=== PATIENT | female | born 1960 | race Caucasian/White ===

== ENCOUNTER 2019-06-02 13:50 | Outpatient (CLI) | payer MEDICAID ==
[~2019-06-02] VITALS: Ht 165.1 cm; Wt 106.1 kg
[~2019-06-02 13:50] MED LIST: TRAM50TA2 PO
[2019-06-02] MEDS ORDERED: ALIR75PE INJ (14:44)
[2019-06-02] MEDS ORDERED: PANT40TA4 PO (14:44)
[2019-06-02] MEDS ORDERED: EPIN0.3A3 (14:44)
[2019-06-02] MEDS ORDERED: ALBU18HF2 INH (14:44)
[2019-06-02] MEDS ORDERED: ISOS30TA6 PO (14:44)
[2019-06-02] MEDS ORDERED: NITR0.4T48 PO (14:44)
[2019-06-02 15:10] LABS: BASOPHILS # (AUTO) 0.1 X10'3 (0-0.2); BASOPHILS % (AUTO) 0.8 % (0-1); EOSINOPHILS # (AUTO) 0.2 X10'3 (0-0.9); EOSINOPHILS % (AUTO) 2.6 % (0-6); LYMPHOCYTES # (AUTO) 2.2 X10'3 (1.1-4.8); LYMPHOCYTES % (AUTO) 34.7 % (21-51); MEAN CORPUSCULAR HEMOGLOBIN 32.2 PG (27.0-31.0); MEAN CORPUSCULAR HGB CONC 34.2 g/dL (33.0-36.5); MEAN CORPUSCULAR VOLUME 94.1 FL (78-98); MEAN PLATELET VOLUME 9.4 FL (7.4-10.4); MONOCYTES # (AUTO) 0.5 X10'3 (0-0.9); MONOCYTES % (AUTO) 7.5 % (2-12); NEUTROPHILS # (AUTO) 3.4 X10'3 (1.8-7.7); NEUTROPHILS % (AUTO) 54.4 % (42-75); PRE OP HEMATOCRIT 44.6 % (35.0-45.0); PRE OP HEMOGLOBIN 15.3 g/dL (12.0-16.0); PRE OP PLATELET COUNT 174 X10'3 (140-440); RED BLOOD COUNT 4.74 X10'6 (4.20-5.60); RED CELL DISTRIBUTION WIDTH 13.3 % (11.5-14.5)
[2019-06-02 15:25] LABS: ALBUMIN 3.9 G/DL (3.4-5.0); ALBUMIN/GLOBULIN RATIO 1.2 (1.1-1.5); ALKALINE PHOSPHATASE 101 IU/L (46-116); BLOOD UREA NITROGEN 6 MG/DL (7-18); BUN/CREATININE RATIO 8.7 (6.6-38.0); CHLORIDE 107 MMOL/L (99-107); CREATININE 0.69 MG/DL (0.40-0.90); PRE OP ANION GAP 8 (8-16); PRE OP AST 66 U/L (10-37); PRE OP BILIRUB, TOTAL 0.3 MG/DL (0.0-1.0); PRE OP GLUCOSE 113 MG/DL (70-104); PRE OP POTASSIUM 3.8 MMOL/L (3.4-5.1); PRE OP SODIUM 142 MMOL/L (135-145); TOTAL CARBON DIOXIDE 26.6 MMOL/L (24-32); TOTAL PROTEIN 7.1 G/DL (6.4-8.2); eGFR 87 ML/MIN
[2019-06-02 15:30] LABS: PRE OP ALT 120 U/L (30-65)
[2019-06-06] MEDS ORDERED: famotidine 20mg tablet PO ONE (05:30)
[2019-06-06] MEDS ORDERED: ringers solution, lacted 1,000 ML IV SCH (05:30)
[2019-06-06] MEDS ORDERED: cefazolin/dext.iso 2gm/100 ML IV ONE (05:30)
[2019-06-06] MEDS ORDERED: albuterol 2.5 MG/3 ML nebule NEB ONE (05:30)
== END 2019-06-02 23:59 | disposition home or self-care (01) ==
LOC: PRE-OP 13:50 → EDSTATUS 06-08 19:45
PROVIDERS: ATTEND Orthopaedic Surgery
DX: Z01.818 Encounter for other preprocedural examination (principal); M19.011 Primary osteoarthritis, right shoulder; M75.41 Impingement syndrome of right shoulder; F17.200 Nicotine dependence, unspecified, uncomplicated
CPT/HCPCS: 36415; 71046; 80053; 85025; J7120

== ENCOUNTER 2019-07-22 05:21 | Day surgery (SDC) | payer MEDICAID ==
[2019-07-13 14:41] LABS: BASOPHILS # (AUTO) 0.1 X10'3 (0-0.2); BASOPHILS % (AUTO) 1.2 % (0-1); EOSINOPHILS # (AUTO) 0.2 X10'3 (0-0.9); EOSINOPHILS % (AUTO) 3.1 % (0-6); LYMPHOCYTES # (AUTO) 1.7 X10'3 (1.1-4.8); LYMPHOCYTES % (AUTO) 28.4 % (21-51); MEAN CORPUSCULAR HEMOGLOBIN 32.8 PG (27.0-31.0); MEAN CORPUSCULAR HGB CONC 34.4 g/dL (33.0-36.5); MEAN CORPUSCULAR VOLUME 95.2 FL (78-98); MEAN PLATELET VOLUME 10.1 FL (7.4-10.4); MONOCYTES # (AUTO) 0.3 X10'3 (0-0.9); MONOCYTES % (AUTO) 5.2 % (2-12); NEUTROPHILS # (AUTO) 3.7 X10'3 (1.8-7.7); NEUTROPHILS % (AUTO) 62.1 % (42-75); PRE OP HEMATOCRIT 44.4 % (35.0-45.0); PRE OP HEMOGLOBIN 15.3 g/dL (12.0-16.0); PRE OP PLATELET COUNT 169 X10'3 (140-440); RED BLOOD COUNT 4.67 X10'6 (4.20-5.60); RED CELL DISTRIBUTION WIDTH 13.5 % (11.5-14.5)
[2019-07-13 14:53] LABS: PRE OP PROTIME 10.1 SECONDS (9.0-12.0)
[2019-07-13 14:54] LABS: ALBUMIN 3.8 G/DL (3.4-5.0); ALBUMIN/GLOBULIN RATIO 1.2 (1.1-1.5); ALKALINE PHOSPHATASE 108 IU/L (46-116); BLOOD UREA NITROGEN 14 MG/DL (7-18); BUN/CREATININE RATIO 17.9 (6.6-38.0); CALCIUM 8.9 MG/DL (8.5-10.1); CHLORIDE 106 MMOL/L (99-107); CREATININE 0.78 MG/DL (0.40-0.90); PRE OP ANION GAP 10 (8-16); PRE OP AST 62 U/L (10-37); PRE OP BILIRUB, TOTAL 0.4 MG/DL (0.0-1.0); PRE OP GLUCOSE 150 MG/DL (70-104); PRE OP POTASSIUM 3.8 MMOL/L (3.4-5.1); PRE OP SODIUM 145 MMOL/L (135-145); TOTAL CARBON DIOXIDE 29.2 MMOL/L (24-32); TOTAL PROTEIN 7.1 G/DL (6.4-8.2); eGFR 75 ML/MIN
[2019-07-13 15:02] LABS: PRE OP ALT 137 U/L (30-65)
[~2019-07-22] VITALS: Ht 165.1 cm; Wt 105.0 kg
[2019-07-22] VITALS (8 sets, daily range): BP systolic 105–123; BP diastolic 55–79
[~2019-07-22 05:21] MED LIST changes: +ALBU18HF2 INH; +ALIR75PE INJ; +EPIN0.3A3; +ISOS30TA6 PO; +NITR0.4T48 PO; +PANT40TA4 PO; -TRAM50TA2 PO; +ringers solution, lacted 1,000 ML IV SCH
[2019-07-22] MEDS ORDERED: cefazolin/dext.iso 2gm/50ml 50 ML IV ONE (05:30)
[2019-07-22] MEDS ORDERED: famotidine 20mg tablet PO ONE (05:30)
[2019-07-22] MEDS ORDERED: LIDOcaine 1% (10mg/ml) 2ml vial ONE (06:02)
[2019-07-22] MEDS ORDERED: BUPIVACAINE liposomal/PF 13.3 MG/ML vial IM ONE (07:16)
[2019-07-22] MEDS ORDERED: BUPIVAcaine 0.5% inj/PF 30 ML ONE (07:16)
[2019-07-22] MEDS ORDERED: midazolam 2 mg/2 ml injection ONE (07:19)
[2019-07-22] MEDS ORDERED: fentaNYL/PF 50MCG/1 ML 2ML syringe ONE ×2 (07:19→09:36)
[2019-07-22] MEDS ORDERED: LIDOcaine 2% (20mg/ml) 5ml vial ONE (07:21)
[2019-07-22] MEDS ORDERED: propofol inj 20 ML IV ONE (07:21)
[2019-07-22] MEDS ORDERED: ePHEDrine 50MG/ML INJ. ONE (07:22)
[2019-07-22] MEDS ORDERED: sevoflurane 250ml liquid IH ONE (07:22)
--- NOTE | 2019-07-22 07:30 | NUR ---
3 ATTEMPTS AT IV WERE UNSUCCESSFUL. DR FLORES NOTIFIED
[2019-07-22] MEDS ORDERED: dexamethasone sod phosphate 4mg/ml inj. ONE (07:57)
[2019-07-22] MEDS ORDERED: ondansetron/PF 4mg/2ml inj ONE (07:57)
[2019-07-22] MEDS ORDERED: ringers solution, lacted 1,000 ML IV SCH (08:21)
[2019-07-22] MEDS ORDERED: hydrALAZINE 20mg/ml inj. IV PRN (08:25)
[2019-07-22] MEDS ORDERED: labetalol 20mg/4ml (5mg/ml) syringe IV PRN (08:25)
[2019-07-22] MEDS ORDERED: fentaNYL/PF 50MCG/1 ML 2ML syringe IV PRN ×2 (08:25)
[2019-07-22] MEDS ORDERED: morphine 4 MG/ML inj SYRINge IV PRN ×2 (08:25)
[2019-07-22] MEDS ORDERED: ondansetron/PF 4mg/2ml inj IV PRN (08:25)
[2019-07-22] MEDS ORDERED: labetalol 20mg/4ml (5mg/ml) syringe IV ONE (09:37)
--- NOTE | 2019-07-22 10:10 | NUR ---
Received from OR via [facility] , accompanied by Anesthesiologist BEAU and report given by Anesthesiolgist. PATIENT WITH 20G PIV IN LEFT HAND RUNNING LR AT 100. 10L MASK ON WITH 95% SATURATIONS. PATIENT WITH ABDUCTOR SLING TO RIGHT UE THAT IS CDI. DRESSING IS CDI. Addendum: 07/22/19 at 1022 by Bryan Dye RN, RN Amended: Links added.
[2019-07-22] MEDS ORDERED: HYDROcodone/acetaminophen 10/325mg tab PO PRN (10:40)
--- NOTE | 2019-07-22 11:10 | NUR ---
ALL DC CRITERIA HAS BEEN MET. IV TAKEN OUT WITHOUT COMPLICATIONS. ALL INSTRUCTIONS COVERED AND ALL QUESTIONS ANSWERED. DRESSINGS CDI. OUT VIA WHEELCHAIR TO PERSONAL VEHICLE WHERE PATIENT WAS SECURED IN AND DRIVEN HOME BY FAMILY. DONNED BRACE SUPPLIED BY PATIENT- SPOUSE ASSISTED IN SAMY. IVA. NO DRAINAGE PRESENT. POWDER PACK PRESENT. Addendum: 07/22/19 at 1152 by Bryan Dye RN, RN Amended: Links added.
== END 2019-07-22 11:10 | disposition home or self-care (01) ==
LOC: PAS 05:21
PROVIDERS: ATTEND Orthopaedic Surgery
DX: S46.011A Strain of muscle(s) and tendon(s) of the rotator cuff of right shoulder, initial encounter (principal); M75.21 Bicipital tendinitis, right shoulder; M19.011 Primary osteoarthritis, right shoulder; M25.711 Osteophyte, right shoulder; G89.18 Other acute postprocedural pain; I10 Essential (primary) hypertension; J44.9 Chronic obstructive pulmonary disease, unspecified; I25.2 Old myocardial infarction; G47.30 Sleep apnea, unspecified; E66.9 Obesity, unspecified; Z68.38 Body mass index [BMI] 38.0-38.9, adult; X58.XXXA Exposure to other specified factors, initial encounter; Y93.89 Activity, other specified; Y92.89 Other specified places as the place of occurrence of the external cause; Y99.8 Other external cause status; Z91.09 Other allergy status, other than to drugs and biological substances; Z88.5 Allergy status to narcotic agent; Z88.2 Allergy status to sulfonamides; Z88.8 Allergy status to other drugs, medicaments and biological substances; Z98.890 Other specified postprocedural states; Z90.710 Acquired absence of both cervix and uterus; Z72.89 Other problems related to lifestyle; Z87.891 Personal history of nicotine dependence; Z86.73 Personal history of transient ischemic attack (TIA), and cerebral infarction without residual deficits; Z79.01 Long term (current) use of anticoagulants
CPT/HCPCS: 29824; 29826; 29827; 36415; 64415; 80053; 82948; 83036; 85025; 85610; 85730; C1713; C9290; J1100; J2001; J2250; J2405; J2704; J3010; J7120; A4565; A4618; A6449; A7000; J3490